=== PATIENT | female | born 1940 | race Two or more races ===

== ENCOUNTER → 2024-01-12 12:41 | Outpatient (REF) | payer MEDICARE, OTHER, SELFPAY | LOC: RAD 12:41 | PROVIDERS: ATTENDING PHYSICIAN Surgery Vascular Surgery | DX: Z99.2 Dependence on renal dialysis (principal); Z01.818 Encounter for other preprocedural examination | CPT/HCPCS: 93985 ==

== ENCOUNTER 2024-01-21 08:05 | Day surgery (SDC) | payer MEDICARE, OTHER, SELFPAY ==
[2024-01-21] VITALS (16 sets, daily range): BP systolic 156–177; BP diastolic 59–75; BMI 23.6
[2024-01-21 08:43] LABS: Hemoglobin 13.4 g/dL (12.0-16.0); Mean Corp Hgb Conc. 32.7 g/dL (33.0-37.0); Mean Corpuscular Hgb 27.7 pg (27.0-31.0); Mean Corpuscular Volume 84.9 fL (81.0-99.0); Mean Platelet Volume 10.3 fL (7.4-10.4); Platelet Count 193 10^3/uL (130-400); Red Blood Cell Count 4.83 10^6/uL (4.20-5.40); Red Cell Dist. Width 15.6 % (11.5-14.5); White Blood Cell Count 6.6 10^3/uL (4.8-10.8)
[2024-01-21 08:54] LABS: INR 1.18
[2024-01-21 08:55] LABS: APTT 29.5 Sec (23.4-35.0)
[2024-01-21 09:02] LABS: Blood Urea Nitrogen 22 mg/dl (7-17); Calcium 9.8 mg/dl (8.4-10.2); Carbon Dioxide 26 mmol/L (22-30); Chloride 102 mmol/L (98-107); Estimated Creatinine Clearance 10 ml/min; Glucose 126 mg/dl (70-99); Potassium 4.2 mmol/L (3.5-5.1); Sodium 140 mmol/L (135-145); eGFR 12.51
[2024-01-21] MEDS: BACTROBAN NASAL 1 GRAM NASAL (09:20)
[2024-01-21] MEDS: PERIDEX 0.12% ORAL RINSE 15 ML PO (09:20)
--- NOTE | 2024-01-21 09:33 | PTCARENOTE ---
Pt speaks mainly Gujarati and Keven. Pt's grand daughter Jordana at pt bedside interpreting for pt.
[2024-01-21] MEDS: NSS 500 IV (09:39)
--- NOTE | 2024-01-21 09:43 | PTCARENOTE ---
Addendum entered by Bailey Sandoval RN 01/21/24 09:53:
Dr Gomez also made aware of pt's low back and abdominal pain. No further treatment ordered at this time.
Original Note:
Pt c/o chronic low back pain and bilateral lower quadrant abdominal pain which pt states started around same time as back. Pt rates back pain as 8/10 and described as 'stiff'. Pt's abdomen with + bowel sounds, is soft and nontender upon palpation.
Pt describes abdomen as feeling 'big and heavy' per pt's grand daughter Jordana who is interpreting for pt. Pt is resting comfortably in stretcher at this time. Dr Macario, anesthesiologist, made aware. No further treatment ordered at this time.
--- NOTE | 2024-01-21 09:51 | PTCARENOTE ---
Dr Gomez at pt bedside.
[2024-01-21 09:52] LABS: Glucose - Point of Care 130 mg/dl (70-99)
--- NOTE | 2024-01-21 10:06 | W.SUR.PREOP ---
Pre-Operative Surgical Note
-
I have examined this patient prior to the performance of the scheduled procedure.
The patient's condition is unchanged from the time of the current History and
Physical and the patient is able to undergo the scheduled procedure.
--- NOTE | 2024-01-21 11:45 | W.SUR.POST ---
Surgical Immediate Post Op
Note
Pre Op Diagnosis: End-stage renal disease
Post Op Diagnosis: Same
Procedure Performed: Left upper extremity brachiocephalic AV fistula creation
Primary Surgeon: Jason
Assist: Magen OMER
Anesthesia: LMA
Estimated Blood Loss: 5 cc
Fluids: See anesthesia flowsheet
Drains/Shunts: None
Specimens/Cultures: None
Doppler/Duplex/Angio (Y/N): Y
Complications: None
Operative Findings: + Thrill
--- NOTE | 2024-01-21 12:16 | OR.RPT ---
Operative Report
Operative Report
PROCEDURE DATE: 01/21/2024
Preoperative diagnosis: End-stage renal disease on hemodialysis
Postoperative diagnosis: Same
Procedure: Left upper extremity brachiocephalic arteriovenous fistula creation
Surgeon: Jason
Radiologic Therapist: JACK Us required for all aspects of procedure including assistance with traction/countertraction, following of suture line, assistance with closure.
Complications: None
Anesthesia: General
Indications for procedure:
End-stage renal disease on hemodialysis. Brought for arteriovenous fistula creation. Risk/benefit/alternatives also discussed. Patient understood all wish to proceed.
Description of procedure:
Patient was identified brought to the operating room placed on the table in supine position. After induction of anesthesia I mapped the veins myself with the ultrasound in the operating room (preoperative vein mapping ultrasound had suggested small
upper arm cephalic vein in the left upper extremity). To my assessment the left upper extremity cephalic vein now appeared to be very suitable sized and actually fairly large. Therefore I elected to proceed with a left brachiocephalic AV fistula
creation. After the adequate administration of anesthesia and perioperative antibiotics she was prepped and draped in the standard surgical fashion. A standard preoperative timeout was undertaken and everybody was in agreement the plan. A
transverse incision was made in the proximal volar aspect of the forearm just distal to the antecubital fossa. This was carried through skin subcutaneous tissue. The antecubital extension of the cephalic vein was identified and carefully dissected
away from surrounding structures and great care to avoid any injury to structures. There was a confluence of several veins here including the basilic vein. All other branches were ligated between silk ties and then divided. As such I was able to
mobilize a suitable length of cephalic vein. Once I had done this I then deepened my dissection in the medial aspect of the incision site through the fascial layer. The brachial artery was carefully identified and carefully dissected away from
surrounding structures take great care to avoid injury to structures. I passed a vessel loop around approximately. Next I gave the patient 3000 units of intravenous heparin. I then ligated the cephalic vein distally in my field with a silk tie
and a clip. I then transected it. I distended under heparinized saline. It distended very well. I marked the anterior surface under distention to avoid any kinking or twisting. The vein was suitable size but just to be sure I ran a 3 mm dilator
through which passed without any difficulty whatsoever. Next I tightened my double looped Vesseloops on the artery proximally and distally. I then made an arteriotomy with 11 blade extended using a Zhu scissor. I spatulated the cephalic vein
and sewed an end to side anastomosis using a running 6-0 Prolene suture. Prior to completing and tying down my suture line I backbled and forebled the [place] artery. Next I released my bulldog clamp on the vein and then released my Vesseloops on
the artery. There was an excellent thrill in the fistula. There was a palpable pulse at the wrist in the radial artery. At this point I was very satisfied. I irrigated. I achieved and confirmed full hemostasis. We then closed in layers using
3-0 Vicryl deep dermal layer followed by 4-0 Monocryl subcuticular stitch. Dermabond was applied. The patient tolerated the procedure well.
[2024-01-21 12:29] LABS: Glucose - Point of Care 120 mg/dl (70-99)
[2024-01-21] MEDS: ROXICODONE 5 MG PO (13:30)
[2024-01-21 13:38] LABS: Glucose - Point of Care 136 mg/dl (70-99)
--- NOTE | 2024-01-21 14:06 | PTCARENOTE ---
Dr Gomez at pt bedside assessing pt and speaking to pt and pt's grand daughter Jordana.
== END 2024-01-21 14:40 | disposition home or self-care (01) ==
LOC: CATH 08:05
PROVIDERS: ATTENDING PHYSICIAN Surgery Vascular Surgery; FAMILY PHYSICIAN Internal Medicine
DX: N18.6 End stage renal disease (principal); Z99.2 Dependence on renal dialysis; Z79.82 Long term (current) use of aspirin; Z79.4 Long term (current) use of insulin; Z79.899 Other long term (current) drug therapy
CPT/HCPCS: 36821; 80048; 82962; 85027; 85610; 85730; 86850; 86900; 86901; 93005

== ENCOUNTER → 2024-03-17 13:24 | Outpatient (REF) | payer MEDICARE, OTHER, SELFPAY | LOC: RAD 13:24 | PROVIDERS: ATTENDING PHYSICIAN Registered Nurse; FAMILY PHYSICIAN Surgery Vascular Surgery | DX: N18.6 End stage renal disease (principal); I77.0 Arteriovenous fistula, acquired | CPT/HCPCS: 93990 ==